=== PATIENT | female | born 1990 | race African-American/Black ===

== ENCOUNTER 2017-12-10 01:51 | Emergency (ER) | payer MEDICAID ==
[~2017-12-10] VITALS: Ht 152.4 cm; Wt 65.0 kg
[~2017-12-10 01:51] MED LIST: OMEP20TA93 PO
[2017-12-10 01:52] VITALS: BP 121/77; PULSE 92; RESP 16; TEMP 99.2; O2SAT 98
--- NOTE | 2017-12-10 03:35 | PD ---
HPI Chief Complaint: Oral / Dental Pain or Problem Time Seen by Provider: 03:24 Travel History International Travel<30 days: No Contact w/Intl Traveler<30days: No Traveled to known affect area: No History of Present Illness HPI The patient is a 27 year old female who presents to the [facility] emergency department with a history of dental pain in the right upper molar that began when a piece broke off this evening. She reports that she was not eating when it happened it just spontaneously occurred. She denies having a dentist. She reports that now she has pain associated with this tooth. The patient denies any recent fevers, cough, congestion, neck pain, chest pain, shortness of breath, abdominal pain, vomiting, diarrhea, urinary symptoms, or neurologic symptoms. LMP: last month. She denies any chance of . PFSH Past Medical History Narrative Medical The patient's past medical history is reportedly none. Asthma: Yes Respiratory: Yes (SINUSITIS) ?: Unknown LMP: 11/11/17 : 1 Para: 1 Past Surgical History Surgical History: No Previous Surgery Social History Alcohol Use: No Tobacco Use: No Substance Use: No Allergies-Medications (Allergen,Severity, Reaction): Coded Allergies: No Known Allergies (Verified Adverse Reaction, Unknown, 12/10/17) Reported Meds & Prescriptions Reported Meds & Active Scripts Active Ibuprofen 600 Mg Tab 600 Mg PO Q8HR PRN Penicillin V Potassium 500 Mg Tab 500 Mg PO Q8H 10 Days Omeprazole 20 Mg Tab 20 Mg PO DAILY Review of Systems Except as stated in HPI: all other systems reviewed are Neg General / Constitutional: No: Fever Eyes: No: Visual changes HENT: Positive: Dental Difficulties Cardiovascular: No: Chest Pain or Discomfort Respiratory: No: Shortness of Breath Gastrointestinal: No: Abdominal Pain Genitourinary: No: Dysuria Musculoskeletal: No: Pain Skin: No Rash Neurologic: No: Weakness Psychiatric: No: Depression Endocrine: No: Polydipsia Hematologic/Lymphatic: No: Easy Bruising Physical Exam Narrative General: The patient is a well-developed well-nourished female in no acute distress. She is sleeping soundly on my arrival to the room. Head and Neck exam: Head is normocephalic atraumatic. Eyes: EOMI, pupils are equal round and reactive to light. Nose: Midline septum with pink mucous membranes Mouth: Dentition is remarkable for her right maxillary molar, buccal aspect noted to be chipped. She has surrounding gingival erythema and edema. No luis abscess formation. Moist mucus membranes. Posterior oropharynx is not erythematous. No tonsillar hypertrophy. Uvula midline. Airway patent. Neck: No palpable lymphadenopathy. No nuchal rigidity. No thyromegaly. Cardiovascular: Regular rate and rhythm without murmurs, gallops, or rubs. Lungs: Clear to auscultation bilaterally. No wheezes, rhonchi, or rales. Abdomen: Soft, without tenderness to palpation in all 4 quadrants of the abdomen. No guarding, rebound, or rigidity. Normal bowel sounds are audible. No tenderness on palpation of McBurney's point.. Extremities: No clubbing, cyanosis, or edema. Neurologic Exam: Grossly nonfocal. Skin Exam: No rash noted. Intact skin that is warm and dry. Data Data Last Documented VS Vital Signs Date Time Temp Pulse Resp B/P (MAP) Pulse Ox O2 Delivery O2 Flow Rate FiO2 12/10/17 03:54 12/10/17 01:52 99.2 92 16 98 Room Air Orders Orders Ibuprofen (Motrin) (12/10/17 04:00) Ed Discharge Order (12/10/17 03:48) [facility] Medical Decision Making Medical Screen Exam Complete: Yes Emergency Medical Condition: Yes Medical Record Reviewed: Yes Differential Diagnosis Dental fracture, versus dental abscess, versus gingival inflammation Narrative Course During the course of the patients emergency department visit, the patients history, examination, and differential diagnosis were reviewed with the patient. The patient was placed on a ham rolling machine operator with oximetry and frequent blood pressure monitoring. The patient was initially provided ibuprofen for pain The patient will be discharged home with a prescription for ibuprofen, Adrian-Vee K. The patient was instructed regarding the importance of following up with a dentist as soon as possible for definitive care. The patient is resting comfortably and feels better, is alert and in no distress. The patients results and examination findings were discussed with the patient. The repeat examination is unremarkable and benign. The history, exam, diagnostic testing, and current condition do not suggest any significant pathology to warrant further testing, continued ED treatment, admission, or surgical evaluation at this point. The vital signs have been stable. The patient does not have uncontrollable pain, intractable vomiting, or other significant symptoms. The patient's condition is stable and appropriate for discharge. The patient will pursue further outpatient evaluation with a primary care physician or other designated or consulting physician as indicated in the discharge instructions. The patient expressed understanding and was agreeable with this plan. Diagnosis Primary Impression: Dental injury Qualified Codes: S09.93XA - Unspecified injury of face, initial encounter Additional Impression: Gingivitis Referrals: Dentist call for appointment Patient Instructions: Dental Caries (DC), General Instructions, Gingivitis (ED) Med/Other Pt SpecificInfo: Prescription(s) given Scripts Ibuprofen (Ibuprofen) 600 Mg Tab 600 MG PO Q8HR Y for PAIN, #12 TAB 0 Refills Prov: Daniela Hdz MD 12/10/17 Penicillin V Potassium (Penicillin V Potassium) 500 Mg Tab 500 MG PO Q8H for Infection for 10 Days, #30 TAB 0 Refills Prov: Daniela Hdz MD 12/10/17 Disposition: 01 DISCHARGE HOME Condition: Stable Daniela Hdz MD Dec 10, 2017 03:35
[2017-12-10] MEDS ORDERED: PENI500T PO (03:47)
[2017-12-10] MEDS ORDERED: IBUP-232 PO (03:47)
[2017-12-10] MEDS ORDERED: IBUPROFEN 600 MG TAB PO ONE (04:00)
== END 2017-12-10 04:04 | disposition home or self-care (01) ==
LOC: NEPE 01:51
DX: S09.93XA Unspecified injury of face, initial encounter (principal); K05.10 Chronic gingivitis, plaque induced; J45.909 Unspecified asthma, uncomplicated; W22.8XXA Striking against or struck by other objects, initial encounter
CPT/HCPCS: 99283

== ENCOUNTER 2018-04-04 23:55 | Emergency (ER) | payer MEDICAID ==
[~2018-04-04 23:55] MED LIST changes: +IBUP-232 PO; +PENI500T PO
[2018-04-04 23:58] VITALS: BP 127/88; PULSE 83; RESP 16; TEMP 98.3; O2SAT 99
[2018-04-05] MEDS ORDERED: PENI500T PO (00:11)
[2018-04-05] MEDS ORDERED: IBUP-232 PO (00:11)
--- NOTE | 2018-04-05 00:11 | PD ---
HPI Chief Complaint: Oral / Dental Pain or Problem Time Seen by Provider: 00:06 Travel History International Travel<30 days: No Contact w/Intl Traveler<30days: No Traveled to known affect area: No History of Present Illness HPI Patient is a 27-year-old female presenting to the emergency department for evaluation of right upper third molar pain. Patient states his been ongoing for a while. It got worse tonight. She reports the pain is a 7 out of 10, it is throbbing. Tooth is sensitive to temperature. She denies any fever, chills , nausea, vomiting, dysphagia. Patient reports that she had an appointment with a dentist but she had to reschedule. PFSH Past Medical History Medical History: Denies Significant Hx Asthma: Yes Diminished Hearing: No Respiratory: Yes (SINUSITIS) Immunizations Current: Yes ?: Not : 1 Para: 1 Past Surgical History Surgical History: No Previous Surgery Social History Alcohol Use: No Tobacco Use: No Substance Use: No Allergies-Medications (Allergen,Severity, Reaction): Coded Allergies: No Known Allergies (Verified Adverse Reaction, Unknown, 04/04/18) Reported Meds & Prescriptions Reported Meds & Active Scripts Active Ibuprofen 600 Mg Tab 600 Mg PO Q8HR PRN Penicillin V Potassium 500 Mg Tab 500 Mg PO Q8H 10 Days Omeprazole 20 Mg Tab 20 Mg PO DAILY Review of Systems Except as stated in HPI: all other systems reviewed are Neg HENT: Positive: Dental Difficulties Physical Exam Narrative GENERAL: Well-developed, well-nourished, alert -[place] female. Presenting in no acute distress. SKIN: Warm and dry. HEAD: Normocephalic. EYES: No scleral icterus. No injection or drainage. MOUTH: Mucous membranes moist, no lesions, tongue and gums appear normal. Right upper third molar is broken. No obvious signs of infection. NECK: Supple, trachea midline. No JVD or lymphadenopathy. CARDIOVASCULAR: Regular rate and rhythm without murmurs, gallops, or rubs. RESPIRATORY: Breath sounds equal bilaterally. No accessory muscle use. GASTROINTESTINAL: Abdomen soft, non-tender, nondistended. MUSCULOSKELETAL: No cyanosis, or edema. BACK: Nontender without obvious deformity. No CVA tenderness. Data Data Last Documented VS Vital Signs Date Time Temp Pulse Resp B/P (MAP) Pulse Ox O2 Delivery O2 Flow Rate FiO2 04/04/18 23:58 98.3 83 16 127/88 (101) 99 Room Air MDM Medical Decision Making Medical Screen Exam Complete: Yes Emergency Medical Condition: Yes Interpretation(s) Vital Signs Date Time Temp Pulse Resp B/P (MAP) Pulse Ox O2 Delivery O2 Flow Rate FiO2 04/04/18 23:58 98.3 83 16 127/88 (101) 99 Room Air Differential Diagnosis Dental abscess versus dental caries versus dentalgia versus other Narrative Course Patient is a 27-year-old female presenting to emerge from for evaluation of dental pain. Patient was in the emergency department at the end of November with the same complaint. Patient has not followed up with a dentist in the last 5 months. She was encouraged to follow-up with her dentist. Patient was encouraged to trial [id number] Orajel use as directed. She will be given a prescription for an antibiotic however she was encouraged to follow-up with her dentist because it does not appear to be any signs of infection at this time. Patient verbalized understanding of instructions. Patient stable for discharge. Diagnosis Primary Impression: Dentalgia Referrals: Dentist 3 days Patient Instructions: Dental Caries (DC), General Instructions Additional Instructions: Follow-up with your dentist Take ibuprofen as needed and as directed for pain Obtain [id number] Orajel and use as needed and as directed Return to emergency department for any new or worsening symptoms Med/Other Pt SpecificInfo: Prescription(s) given Scripts Ibuprofen (Ibuprofen) 600 Mg Tab 600 MG PO Q8HR Y for PAIN, #12 TAB 0 Refills Prov: Kamala Salmon 04/05/18 Penicillin V Potassium (Penicillin V Potassium) 500 Mg Tab 500 MG PO Q8H for Infection for 10 Days, #30 TAB 0 Refills Prov: Kamala Salmon 04/05/18 Disposition: 01 DISCHARGE HOME Condition: Stable Kamala Salmon April 05, 2018 00:11
[2018-04-05] MEDS ORDERED: PENICILLIN V POTASSIUM 500 MG TAB PO ONE (00:30)
== END 2018-04-05 03:06 | disposition home or self-care (01) ==
LOC: NEPD 23:55
DX: K08.89 Other specified disorders of teeth and supporting structures (principal); J45.909 Unspecified asthma, uncomplicated
CPT/HCPCS: 99283